=== PATIENT | male | born 1995 ===

== ENCOUNTER 2020-08-10 13:53 | Outpatient (CLI) | payer OTHER ==
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
== END 2020-08-10 13:54 | disposition home or self-care (01) ==
LOC: BICMRI 13:53
PROVIDERS: ATTEND Family Medicine
DX: S05.02XD Injury of conjunctiva and corneal abrasion without foreign body, left eye, subsequent encounter (principal); S00.83XD Contusion of other part of head, subsequent encounter; S13.4XXD Sprain of ligaments of cervical spine, subsequent encounter; G44.319 Acute post-traumatic headache, not intractable
CPT/HCPCS: 70551